=== PATIENT | female | born 1995 | race Caucasian/White ===

== ENCOUNTER 2017-12-19 19:36 | Emergency (ER) | payer SELFPAY ==
[~2017-12-19] VITALS: Ht 154.9 cm; Wt 72.1 kg
[2017-12-19 19:45] VITALS: BP 116/81
--- NOTE | 2017-12-19 19:48 | NUR ---
PT TAKEN TO BED 7
--- NOTE | 2017-12-19 19:50 | NUR ---
PT PRESENTED TO THE ER WITH RECHECK FOR HCG. PT STATED THAT SHE WAS HERE LAST ThursdayNovember DUE TO VAG BLEEDING. PT STATED ULTRASOUND COULD NOT FIND THE FETUS AND HER HCG LEVELS WERE LOW. PT IS A/O X 4. PT STATED SHE IS 10 WEEKS . PT DOES NOT HAVE CARE AT THIS TIME DUE TO INSURANCE ISSUES PER PT. PT DENIES ANY PAIN OR VAG BLEEDING AT THIS TIME.EVEN AND STEADY. VSS; PATIENT POSITIONED FOR COMFORT; HOB ELEVATED; BEDRAILS UP X2; BED DOWN. ER MD MADE AWARE OF PT STATUS.
[2017-12-19 20:27] LABS: BASOPHILS % (AUTO) 0.5 % (0.0-2.0); EOSINOPHILS # (AUTO) 0.2 K/uL (0-0.4); EOSINOPHILS % (AUTO) 2.8 % (0.0-4.0); HEMATOCRIT 36.6 % (36-48); HEMOGLOBIN 12.1 g/dL (12.0-16.0); LYMPHOCYTES # (AUTO) 2.2 K/uL (2.5-16.5); MEAN CORPUSCULAR HEMOGLOBIN 30 pg (27-31); MEAN CORPUSCULAR HGB CONC 33 g/dL (33-37); MEAN CORPUSCULAR VOLUME 89.5 fL (80-94); MONOCYTES # (AUTO) 0.6 K/uL (0.8-1.0); MONOCYTES % (AUTO) 8.2 % (1.7-9.3); NEUTROPHILS # (AUTO) 4.3 K/uL (1.8-7.7); NEUTROPHILS % (AUTO) 58.5 % (42.2-75.2); PLATELET COUNT (AUTO) 274 K/uL (140-450); RED BLOOD CELL COUNT(AUTO) 4.09 MIL/uL (4.20-5.40); RED CELL DISTRIBUTION WIDTH 14.7 % (11.6-13.7); WHITE BLOOD COUNT (AUTO) 7.4 K/uL (4.8-10.8)
[2017-12-19 21:24] LABS: APPEARANCE,URINE CLEAR (CLEAR); BILIRUBIN,URINE NEGATIVE (NEGATIVE); BLOOD, URINE NEGATIVE (NEGATIVE); COLOR,URINE YELLOW (YELLOW); LEUKOCYTE ESTERASE ,URINE NEGATIVE (NEGATIVE); NITRITE, URINE NEGATIVE (NEGATIVE); PH,URINE 7.5 (5.0-9.0); UGLUCOSE NEGATIVE (NEGATIVE)
[2017-12-19 21:48] VITALS: BP 116/81
--- NOTE | 2017-12-19 21:48 | NUR ---
Patient discharged with v/s stable. Written and verbal after care instructions given and explained. Patient verbalized understanding. Ambulatory with steady gait. All questions addressed prior to discharge. Advised to follow up with PMD.
== END 2017-12-19 21:48 | disposition home or self-care (01) ==
LOC: MED 19:36
DX: Z32.01 Encounter for pregnancy test, result positive (principal)
CPT/HCPCS: 36415; 81003; 81025; 84702; 85025; 99284

== ENCOUNTER 2020-07-19 21:16 | Emergency (ER) | payer OTHER ==
[~2020-07-19] VITALS: Ht 154.9 cm; Wt 77.1 kg
[2020-07-19 21:29] VITALS: BP 107/63
--- NOTE | 2020-07-19 21:29 | NUR ---
TO BED AMBULATORY
--- NOTE | 2020-07-19 21:29 | NUR ---
VISION ACUITY; BOTH EYE 20/15, LEFT EYE 20/25, RT EYE 20/20
--- NOTE | 2020-07-19 21:40 | NUR ---
PATIENT BIB SELF FOR C/O RIGHT EYE PAIN X 2 DAYS. A & O X4. PATIENT REPORTS PAIN 2/10. PT STATES IT HURTS MORE WHEN SHE MOVES HER EYE TO THE RIGHT. THE PAIN RADIATES TO HER HEAD CAUSING A HEADACHE ON THE RIGHT SIDE. PATIENT STATES "IT FEELS A LITTLE BLURRY TOO." PATIENT DENIES INJURY TO EYE. PATIENT DENIES WEARING CONTACTS. BILATERAL PERRLA. NO NOTED SWELLING OR DISCHARGE. SEE COMPLETE ASSESSMENT FOR FURTHER DETAILS. MED HX: DENIES ALLERGIES: NKA
--- NOTE | 2020-07-19 21:58 | NUR ---
Patient being evaluated by physician at bedside.
[2020-07-19] MEDS ORDERED: CEPH-588 PO (22:10)
[2020-07-19] MEDS ORDERED: IBUP-2213 PO (22:10)
[2020-07-19 22:14] VITALS: BP 107/63
--- NOTE | 2020-07-19 22:14 | NUR ---
Patient discharged with v/s stable. Written and verbal after care instructions given and explained. Patient alert, oriented and verbalized understanding of instructions. Ambulatory with steady gait. All questions addressed prior to discharge. ID band removed. Patient advised to follow up with PMD. Rx of KEFLEX AND IBUPROFEN given. Patient educated on indication of medication including possible reaction and side effects. Opportunity to ask questions provided and answered.
== END 2020-07-19 22:14 | disposition home or self-care (01) ==
LOC: MED 21:16
DX: L03.213 Periorbital cellulitis (principal)
CPT/HCPCS: 99283

== ENCOUNTER 2023-01-27 12:43 | Emergency (ER) | payer OTHER ==
[~2023-01-27] VITALS: Ht 154.9 cm; Wt 84.8 kg
[~2023-01-27 12:43] MED LIST: CEPH-588 PO; IBUP-2213 PO
[2023-01-27 13:34] VITALS: BP 123/82; PULSE 77; RESP 18; TEMP 98.3; O2SAT 98
[2023-01-27] MEDS: diphenhydrAMINE 50 MG/ML VIAL IVP ONE (15:40)
[2023-01-27] MEDS: METOCLOPRAMIDE 10 MG/2 ML INJ VIAL IVP ONE (15:40)
[2023-01-27] MEDS: KETOROLAC 30 MG/ML VIAL IVP ONE (15:40)
[2023-01-27] MEDS: ACETAMINOPHEN 325 MG TAB PO ONE (16:09)
[2023-01-27] MEDS ORDERED: diphenhydrAMINE 50 MG/ML VIAL ONE (16:45)
[2023-01-27] MEDS ORDERED: KETOROLAC 30 MG/ML VIAL ONE (16:45)
[2023-01-27] MEDS ORDERED: METOCLOPRAMIDE 10 MG/2 ML INJ VIAL ONE (16:45)
[2023-01-27 17:40] VITALS: BP 128/82; PULSE 77; RESP 18; TEMP 98; O2SAT 98
== END 2023-01-27 17:51 | disposition home or self-care (01) ==
LOC: MED 12:43
DX: R51.9 Headache, unspecified (principal); Z79.1 Long term (current) use of non-steroidal anti-inflammatories (NSAID); Z79.2 Long term (current) use of antibiotics
CPT/HCPCS: 81025; 96374; 96375; 99284; J1200; J1885; J2765